=== PATIENT | female | born 1960 | race Caucasian/White ===

== ENCOUNTER 2021-04-16 14:55 | Emergency (ER) | payer MEDICARE, OTHER ==
[~2021-04-16 14:55] MED LIST: ALPRAZOLAM0.5 MG PO; ASPIR 8181 MG PO; DIABETA 2.5 MG2.5 MG PO; DIFLUCAN150 MG PO; IBUPROFEN600 MG PO; LANTUS INS100 UTS/M1 SQ; LISINOPRIL20 MG PO; LORTAB 10-3251 EACH PO; METFORMIN HCL500 MG PO; NEURONTIN 400400 MG PO; NORFLEX 100 MG100 MG PO; OMEPRAZOLE20 MG PO; OMNICEF 300 MG300 MG PO; OXYBUTYNIN CHLOR5 MG PO; REQUIP0.5 MG PO; SYNTHROID50 MCG PO; TESSALON PERLE100 MG PO; TRICOR 145 MG145 MG PO; ZANTAC150 MG PO
== END 2021-04-16 16:02 | disposition left against medical advice (07) ==
LOC: ER1 14:55
DX: Z53.21 Procedure and treatment not carried out due to patient leaving prior to being seen by health care provider (principal)

== ENCOUNTER → 2021-05-01 | Outpatient (CLI) | payer MEDICARE, OTHER | LOC: RAD 15:54 | DX: J44.9 Chronic obstructive pulmonary disease, unspecified (principal); J84.9 Interstitial pulmonary disease, unspecified | CPT/HCPCS: 71046 ==

== ENCOUNTER → 2021-11-13 | Outpatient (CLI) | payer MEDICARE, OTHER | LOC: KOH-I 12:38 | DX: J22 Unspecified acute lower respiratory infection (principal) | CPT/HCPCS: 71046 ==

== ENCOUNTER → 2021-12-18 | Outpatient (CLI) | payer MEDICARE, OTHER | LOC: KOH-I 12-12 08:30 | DX: F17.210 Nicotine dependence, cigarettes, uncomplicated (principal) | CPT/HCPCS: 71271 ==

== ENCOUNTER → 2021-12-26 | Outpatient (CLI) | payer MEDICARE, OTHER | LOC: KOH-I 14:11 | DX: M79.672 Pain in left foot (principal); S92.352A Displaced fracture of fifth metatarsal bone, left foot, initial encounter for closed fracture | CPT/HCPCS: 73630 ==